=== PATIENT | male | born 1975 | race Caucasian/White ===

== ENCOUNTER 2019-12-24 04:02 | Emergency (ER) | payer MEDICAID, OTHER ==
[~2019-12-24] VITALS: Ht 7340.6 cm; Wt 106.6 kg
[2019-12-24] MEDS ORDERED: HYDROCODONE/APAP 5-325MG TABLET ONE (04:44)
[2019-12-24] MEDS ORDERED: HYDROCODONE/APAP 5-325MG TABLET PO ONE (04:45)
[2019-12-24] MEDS ORDERED: HYDROCODONE/APAP 10-325 MG TABLET PO ONE (04:45)
--- NOTE | 2019-12-24 04:48 | NUR ---
RECEPTION MANAGER AT BEDSIDE
--- NOTE | 2019-12-24 05:17 | NUR ---
Patient discharged to home in stable conditon. Written and verbal after care instructions given. Patient verbalizes understanding of instructions. AMBULATORY W/ ANTALGIC GAIT, W/ USE OF CRUTCHES GAIT TRAINING DONE ALL BELONGINGS W/ PT [employer] [address] [employer]
[2019-12-24 05:18] VITALS: BP 143/99
== END 2019-12-24 05:19 | disposition home or self-care (01) ==
LOC: ER 04:06
DX: S39.011A Strain of muscle, fascia and tendon of abdomen, initial encounter (principal); S83.91XA Sprain of unspecified site of right knee, initial encounter; F17.290 Nicotine dependence, other tobacco product, uncomplicated; Z71.6 Tobacco abuse counseling; W10.9XXA Fall (on) (from) unspecified stairs and steps, initial encounter; Y93.89 Activity, other specified; Y92.89 Other specified places as the place of occurrence of the external cause; Y99.8 Other external cause status
CPT/HCPCS: 73551; 73562; 73590; A4663